=== PATIENT | female | born 1980 | race American Indian/Alaskan Native ===

== ENCOUNTER 2018-09-01 12:47 | Emergency (ER) | payer MEDICAID ==
--- NOTE | 2018-09-01 12:57 | Event Note ---
ED Screening Note Date of service: 09/01/18 Time: 12:54 ED Screening Note: 38 y/o female comes in for N/V and diarrhea. Having rectal bleeding yesterday. PMH DM asthma. This initial assessment/diagnostic orders/clinical plan/treatment(s) is/are subject to change based on patients health status, clinical progression and re- assessment by fellow clinical providers in the ED. Further treatment and workup at subsequent clinical providers discretion. Patient/guardian urged not to elope from the ED as their condition may be serious if not clinically assessed and managed. Initial orders include:
[2018-09-01 13:44] LABS: Basophils # (Auto) 0.1 K/mm3 (0.0-0.1); Basophils % (Auto) 0.5 % (0.0-1.8); Eosinophils # (Auto) 0.1 K/mm3 (0.0-0.4); Hematocrit 39.8 % (30.3-42.9); Hemoglobin 13.7 gm/dl (10.1-14.3); Lymphocytes # (Auto) 0.9 K/mm3 (1.2-5.4); Lymphocytes % (Auto) 9.2 % (13.4-35.0); Mean Corpuscular HGB Conc 35 % (30-34); Mean Corpuscular Volume 91 fl (79-97); Monocytes # (Auto) 0.5 K/mm3 (0.0-0.8); Monocytes % (Auto) 4.7 % (0.0-7.3); Platelet Count 252 K/mm3 (140-440); Red Blood Count 4.36 M/mm3 (3.65-5.03); Red Cell Distribution Width 13.7 % (13.2-15.2)
[2018-09-01 14:07] LABS: Alanine Aminotransferase 18 units/L (7-56); Albumin 4.3 g/dL (3.9-5); BUN/Creatinine Ratio 20; Blood Urea Nitrogen 12 mg/dL (7-17); Calcium 9.1 mg/dL (8.4-10.2); Hemolysis Index 3
[2018-09-01 14:08] LABS: Bacteria,Urine 1+ /HPF (Negative); Bilirubin,Urine NEG (Negative); Blood,Urine NEG (Negative); Color,Urine Yellow (Yellow); HCG Qualitative,Urine Negative (Negative); Mucus,Urine 2+ /HPF; Urobilinogen,Urine < 2.0 mg/dL (<2.0)
[2018-09-01] MEDS ORDERED: ZOFRAN ODT PO ONE (16:39)
[2018-09-01] MEDS ORDERED: ROCEPHIN IM ONE (16:39)
[2018-09-01] MEDS ORDERED: XYLOCAINE 1% MPF 5 mL INFILTRATI ONE (16:39)
--- NOTE | 2018-09-01 16:46 | Emergency Department Report ---
ED Abdominal Pain HPI - General Chief Complaint: Nausea/Vomiting/Diarrhea Stated Complaint: RECTAL BLEED/NAUSEA /VOMITING Time Seen by Provider: 09/01/18 12:54 Source: patient Mode of arrival: Ambulatory Limitations: No Limitations - History of Present Illness MD Complaint: abdominal pain -: Gradual Location: diffuse Radiation: none Migration to: no migration Severity scale (0 -10): 1 Consistency: intermittent Improves With: nothing Worsens With: nothing Associated Symptoms: denies other symptoms - Related Data Home Medications Medication Instructions Recorded Confirmed Last Taken Budesoni/Formotero 160-4.5(Nf) 2 puff IH BID PRN 07/06/15 07/06/15 07/05/15 [Symbicort 160-4.5 (Nf)] Insulin Aspart [NovoLOG 100 30 units SUB-Q TID 07/06/15 07/06/15 07/05/15 UNITS/ML VIAL] Previous Rx's Medication Instructions Recorded Last Taken Type Albuterol Sulfate [Ventolin HFA] 2 puff IH Q4H PRN #1 hfa.aer.ad 02/07/13 07/05/15 Rx ALBUTEROL Inhaler (OR & NICU) 2 puff IH QID PRN #1 inhalation 07/06/15 Unknown Rx [ProAir HFA Inhaler] Ibuprofen [Motrin] 800 mg PO Q8HR PRN #15 tablet 07/06/15 Unknown Rx Phenylephrine/Dm/Acetaminop/GG 20 ml PO Q6HR PRN #180 ml 07/06/15 Unknown Rx [Mucinex Boml-Rzv-Btpktrriee Lq] Promethazine /Codeine 5 ml PO Q6H PRN #90 ml 07/06/15 Unknown Rx [Phenergan/Codeine 6.25-10 mg/5Ml] Sulfamethoxazole/Trimethoprim 1 each PO BID #14 tablet 09/01/18 Unknown Rx [Bactrim DS TAB] Allergies Allergy/AdvReac Type Severity Reaction Status Date / Time Penicillins Allergy Rash Verified 02/07/13 08:07 ED Review of Systems ROS: Stated complaint: RECTAL BLEED/NAUSEA /VOMITING Other details as noted in HPI Other: GENERAL: No weight change, fatigue, weakness, fever, chills, or night sweats SKIN: No changes in skin or hair, no itching, no rashes, no jaundice HEAD: No trauma, headache, or visual changes EYES: No blurriness, tearing, itching, acute visual loss, conjunctival discolo ration, or scleral icterus EARS: No hearing loss, tinnitus, vertigo, or earache NOSE: No rhinorrhea, stuffiness, sneezing, itching, or epistaxis MOUTH: No bleeding gums, hoarseness, sore throat, or swelling CARDIAC: No new murmur, chest pain, palpitations, dyspnea on exertion, orthopnea, PND, or edema RESPIRATORY: No shortness of breath, wheeze, cough, sputum production, hemoptysis, pneumonia, asthma, bronchitis, or emphysema GI: Abdominal Pain. No change in appetite, nausea, vomiting, dysphagia, change in bowel frequency, diarrhea, constipation, bleeding, hematemesis, melena, hematochezia URINARY: No frequency, urgency, polyuria, dysuria, hematuria, or incontinence MUSCULOSKELETAL: No muscle weakness, joint stiffness, decrease in range of motion, redness, swelling NEUROLOGIC: No loss of sensation, numbness, tingling, tremors, weakness, paralysis, seizures HEMATOLOGIC: No anemia, easy bruising, bleeding, petechiae, or purpura ENDOCRINE: No hot or cold intolerance, sweating, polyuria, polydipsia or, polyphagia no thyroid problems PSYCHIATRIC: No change in mood, no anxiety, no depression GENITAL: Female: No change in menstrual regularity, no frequency or dysmenorrhea ED Past Medical Hx - Past Medical History Previous Medical History?: Yes Hx Asthma: Yes Additional medical history: Gestational diabetes - Surgical History Past Surgical History?: Yes Hx Cholecystectomy: Yes - Social History Smoking Status: Never Smoker Substance Use Type: None - Medications Home Medications: Home Medications Medication Instructions Recorded Confirmed Last Taken Type Albuterol Sulfate [Ventolin HFA] 2 puff IH Q4H PRN #1 hfa.aer.ad 02/07/13 07/06/15 07/05/15 Rx ALBUTEROL Inhaler (OR & NICU) 2 puff IH QID PRN #1 inhalation 07/06/15 Unknown Rx [ProAir HFA Inhaler] Budesoni/Formotero 160-4.5(Nf) 2 puff IH BID PRN 07/06/15 07/06/15 07/05/15 History [Symbicort 160-4.5 (Nf)] Ibuprofen [Motrin] 800 mg PO Q8HR PRN #15 tablet 07/06/15 Unknown Rx Insulin Aspart [NovoLOG 100 30 units SUB-Q TID 07/06/15 07/06/15 07/05/15 History UNITS/ML VIAL] Phenylephrine/Dm/Acetaminop/GG 20 ml PO Q6HR PRN #180 ml 07/06/15 Unknown Rx [Mucinex Leow-Zez-Duielejmyk Lq] Promethazine /Codeine 5 ml PO Q6H PRN #90 ml 07/06/15 Unknown Rx [Phenergan/Codeine 6.25-10 mg/5Ml] Sulfamethoxazole/Trimethoprim 1 each PO BID #14 tablet 09/01/18 Unknown Rx [Bactrim DS TAB] ED Physical Exam - General Limitations: No Limitations - Other Other exam information: GENERAL: Patient in no acute distress HEAD: Normocephalic, atraumatic EYES: PERRLA, EOM intact, no scleral icterus, no papilledema, no conjunctival hemorrhage, visual fitch and acuity wnl, NOSE: No tenderness, discharge, sinus tenderness MOUTH: No erythema, bleeding, exudate HEART: Regular rate and rhythm, no murmur, S1-S2 are auscultated, pulses are symmetric LUNGS: No wheezing, rales, rhonchi, bilateral breath sounds ABDOMEN: Normal bowel sounds, no tenderness, no rebound, no guarding, no masses, no CVA tenderness MUSCULOSKELETAL: Normal joint range of motion, no redness, no swelling, no tenderness NEUROLOGIC: GCS 15, Alert and Oriented x3, Cranial nerves intact, normal sensation, normal strength, normal gait, no cerebellar deficit PSYCHIATRIC: No homicidal or suicidal ideation, no anxiety, no depression, no hallucinations SKIN: Skin is warm and dry, no wounds, no rashes ED Course Vital Signs 09/01/18 09/01/18 12:51 17:57 Temperature 98.1 F Pulse Rate 95 H 74 Respiratory 18 17 Rate Blood Pressure 151/80 Blood Pressure 130/65 [Right] O2 Sat by Pulse 99 100 Oximetry ED Medical Decision Making - Lab Data Result diagrams: 09/01/18 13:33 09/01/18 13:33 - Medical Decision Making Patient comfortable. Updated with results. Plan discharge with outpatient follow up. Return if any worsening. Critical care attestation.: If time is entered above; I have spent that time in minutes in the direct care of this critically ill patient, excluding procedure time. ED Disposition Clinical Impression: UTI (urinary tract infection) Qualifiers: Urinary tract infection type: site unspecified Hematuria presence: without hematuria Qualified Code(s): N39.0 - Urinary tract infection, site not specified Disposition: TO HOME OR SELFCARE Is pt being admited?: No Condition: Stable Instructions: Urinary Tract Infection in Women (ED), Abdominal Pain (ED) Prescriptions: Sulfamethoxazole/Trimethoprim [Bactrim DS TAB] 1 each PO BID #14 tablet Referrals: ALTHEA NAPOLES MD [Primary Care Provider] - 2-3 Days Time of Disposition: 16:46
[2018-09-01 17:58] VITALS: BP 130/65
== END 2018-09-01 17:58 | disposition home or self-care (01) ==
LOC: ED 12:47
DX: N39.0 Urinary tract infection, site not specified (principal); J45.909 Unspecified asthma, uncomplicated; Z90.49 Acquired absence of other specified parts of digestive tract; Z79.899 Other long term (current) drug therapy; Z88.0 Allergy status to penicillin
CPT/HCPCS: 36415; 80053; 81001; 81025; 85025; 96372; 99283; J0696; Q0162